=== PATIENT | male | born 1960 | race Caucasian/White ===

== ENCOUNTER 2019-02-11 09:16 | Outpatient (REF) | payer MEDICAID, SELFPAY ==
[2019-02-11 12:51] LABS: Anion Gap 10.8 mmol/L (3-11); BUN 22 mg/dL (7-18); CO2 25.2 mmol/L (21.0-32.0); CREATININE 1.07 mg/dL (0.70-1.30); Calcium 8.7 mg/dL (8.5-10.1); Chloride 107 mmol/L (98-107); Glucose 103 mg/dL (74-106); Potassium 4.1 mmol/L (3.5-5.1); Sodium 143 mmol/L (136-145)
[2019-02-14 11:37] LABS: PSA, Screening 1.3 ng/mL (0.0-3.5)
== END 2019-02-11 09:36 ==
LOC: NCHCN 09:16
PROVIDERS: Visit Provider Family Medicine
DX: R03.0 Elevated blood-pressure reading, without diagnosis of hypertension (principal); Z12.5 Encounter for screening for malignant neoplasm of prostate
CPT/HCPCS: 80048; 84153

== ENCOUNTER 2019-08-04 09:29 | Outpatient (REF) | payer MEDICAID, SELFPAY ==
[2019-08-04 20:32] LABS: Hemoglobin A1C 5.4 % (3.8-5.6)
[2019-08-04 20:40] LABS: ALT 39 U/L (16-63); AST 32 U/L (15-37); Albumin 4.2 g/dL (3.4-5.0); Alkaline Phosphatase 69 U/L (46-116); Anion Gap 10.8 mmol/L (3-11); BUN 19 mg/dL (7-18); Bilirubin, Total 1.1 mg/dL (0.2-1.0); CO2 25.2 mmol/L (21.0-32.0); CREATININE 1.17 mg/dL (0.70-1.30); Calcium 8.6 mg/dL (8.5-10.1); Calculated LDL 94 mg/dL (<100); Chloride 106 mmol/L (98-107); Cholesterol 157 mg/dL (<200); Glucose 98 mg/dL (74-106); HDL Cholesterol 39 mg/dL (40-60); Potassium 3.9 mmol/L (3.5-5.1); Sodium 142 mmol/L (136-145); Total Protein 6.9 g/dL (6.4-8.2); Triglyceride 120 mg/dL (<150)
== END 2019-08-04 09:49 ==
LOC: NCHCN 09:29
PROVIDERS: PCP Family Medicine; Visit Provider Family Medicine
DX: R73.03 Prediabetes (principal); R03.0 Elevated blood-pressure reading, without diagnosis of hypertension
CPT/HCPCS: 80053; 80061; 83036

== ENCOUNTER 2020-04-17 11:34 | Emergency (ER) | payer MEDICAID, SELFPAY ==
[2020-04-17 11:42] VITALS: BP 156/105; PULSE 62; RESP 16; TEMP 36.2; O2SAT 98
--- NOTE | 2020-04-17 11:51 | ED.GENADUL_ITS ---
Discharge Plan Disposition Patient Disposition: HOME Condition: Stable Discharge Details Clinical Impression: Injury of hand, right Primary Care Provider: Luda Elam ED Provider: Saima Peralta Home Meds and New Rx's Prescriptions: No Action No Known Home Meds RF: 0 Discharge Instructions Instructions: Hand Fracture (ED) Additional Instructions: Please follow-up with orthopedics in 1 to 2 weeks or sooner as possible as needed for continued pain swelling. Wear splint for comfort and immobilization. Rest, ice, elevation at the level of your heart while sitting or laying down. Please take Tylenol or Ibuprofen with food every 4-6 hours as needed for pain and swelling. Knee x-rays taken today shows questionable fracture on the third knuckle, but due to the extensive degenerative changes is very hard to see. Referrals: Luda Elam [Primary Care Provider] - Francisco Dotson MD [ [facility] STAFF PHYSICIAN] - Medical Decision Making 59-year-old male presents to the ER with chief complaint of right hand pain since last night, patient states that he slipped last night on the ice, hit his hand on a wall hyperextending his fingers. He does have a previous fracture to that hand on the fourth finger, he has some tenderness to the dorsum of his hand, swelling and contusion noted. He does have some decreased extension. He has full range of motion of his wrist. He has a past medical history of asthma, Parkinson's disease, resting tremor, status post bilateral carpal tunnel release. He took ibuprofen this morning prior to arrival. Patient given ice pack, x-ray right hand ordered. Offered Tylenol or ibuprofen patient declined at this time. He did take Advil prior to arrival this morning. CLINICAL HISTORY: Hand injury, Fall TECHNIQUE: COMPARISON: No exams were available for comparison FINDINGS: Four views were obtained. There are severe degenerative changes of the joints of the hand and wrist. No gross acute fracture identified. Discussed x-ray results with radiologist, there is a lot of old degenerative changes and old injuries. He neither confirm nor deny that there could be a acute fracture on the3rd right metacarpal, more possibly seen on lateral view. Patient placed in a universal wrist splint which she reports makes him feel much better. Will have patient follow-up with orthopedics in 1 to 2 weeks if continued pain and swelling. Discussed x-ray results and home care with patient. He verbalizes understanding. Discussed follow-up with orthopedics. This text was generated using [employer] dictation system, please disregard any oddities of phrase or misspellings. HPI General Mode of arrival: ambulatory . Date/Time Provider Initiated Documentation: 04/17/20 11:42 . Limitations to Documentation: no limitations . Information obtained by: patient . HPI Narrative: 59-year-old male presents to the ER with chief complaint of right hand pain since last night, patient states that he slipped last night on the ice, hit his hand on a wall hyperextending his fingers. He does have a previous fracture to that hand on the fourth finger, he has some tenderness to the dorsum of his hand, swelling and contusion noted. He does have some decreased extension. He has full range of motion of his wrist. He has a past medical history of asthma, Parkinson's disease, resting tremor, status post bilateral carpal tunnel release. He took ibuprofen this morning prior to arrival. Related Data Home Medications Medication Instructions Recorded Confirmed Unknown [No Known Home Meds] 04/17/20 04/17/20 Allergies Allergy/AdvReac Type Severity Reaction Status Date / Time Penicillins Allergy Intermediate Skin Rash Verified 10/25/19 08:23 General Stated Complaint: Orthopedic ANKITA: 4 Review of Systems Narrative: No headache, no neck no back pain. He denies hitting his head or any loss of consciousness. All systems reviewed & are unremarkable except as noted in HPI and below ENT Ears, Nose, Mouth, and Throat: Denies neck pain Musculoskeletal Musculoskeletal: Reports as per HPI, Denies back pain, Reports arthralgias (Right hand), Reports joint swelling, Reports limited range of motion, Denies muscle weakness, Denies neck pain, Denies numbness, Denies radiating pain into limb, Reports stiffness and Denies tingling Neurologic Neurologic: Denies numbness and Denies tingling [facility] Medical History (Updated 04/17/20 @ 13:17 by Saima Peralta) Asthma Parkinsons disease (2016) Primary insomnia (11/01/15) Prosopagnosia Resting tremor (10/01/15) Surgical History Biceps tendon tear S/p bilateral carpal tunnel release Social History Smoking/Tobacco Use Status: Never Smoking risk assessment performed?: Yes Alcohol Intake: never Drug use: Never Substance use type: does not use Household members: family Do you feel safe at home: Yes Do you feel safe in your relationship?: Yes Additional Social history: 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 2 kids. No smoking, ETOH, or illicit drug use. Exam Narrative Exam Narrative: Constitutional: Alert and oriented x3. Appears stated age. Normal body habitus. Head: Normocephalic, no signs of trauma. Eyes: Pupils PERRLA, EOM's intact. Eyelids symmetrical without lesions, discharge, or swelling. Chest: RRR, Normal S1, S2, distal pulses intact. Resp: Lungs clear to auscultation bilaterally, no wheezes, rales, or rhonchi. Musculoskeletal: Normal gait, 5/5 strength to all four extremities. Right hand tenderness, swelling noted to the dorsum of his right hand, contusion noted to the base of his third digit. He does have decreased extension with approximately 75%, increased pain with flexion. Intact radial pulses, cap refill less than 2 seconds distally. Full range of motion of extension and flexion to the wrist. No elbow tenderness to palpation, no obvious deformity to the elbow. Skin: No suspicious rashes or lesions. Capillary refill less than 2 sec. Hematologic/Lymphatic: No ecchymosis, no lymphadenopathy. Course Vital Signs Vital signs: Vital Signs Temperature 36.2 C L 04/17/20 11:42 Pulse 62 04/17/20 11:42 Respiratory Rate 16 04/17/20 11:42 Blood Pressure 156/105 H 04/17/20 11:42 Pulse Oximetry 98 04/17/20 11:42 Temperature 36.2 C L 04/17/20 11:42 Temperature Source Skin 04/17/20 11:42 Pulse 62 04/17/20 11:42 Respiratory Rate 16 04/17/20 11:42 Respiratory Effort 04/17/20 11:46 Blood Pressure 156/105 H 04/17/20 11:42 Blood Pressure Position Sitting 04/17/20 11:42 Pulse Oximetry 98 04/17/20 11:42 Oxygen Delivery Method Room Air 04/17/20 11:42 Oxygen Flow Rate 0 04/17/20 11:42 Pain Level 1 04/17/20 11:46
--- NOTE | 2020-04-17 12:13 | DI.RAD_ITS ---
EXAM: XR HAND RT COMPLETE CLINICAL HISTORY: Hand injury, Fall TECHNIQUE: COMPARISON: No exams were available for comparison FINDINGS: Four views were obtained. There are severe degenerative changes of the joints of the hand and wrist. No gross acute fracture identified. IMPRESSION: RADIATION DOSE DELIVERED: Total DLP
[2020-04-17 13:08] VITALS: BP 158/103; PULSE 78; RESP 18; TEMP 36.5; O2SAT 98
== END 2020-04-17 13:29 | disposition home or self-care (01) ==
PROVIDERS: Emergency Provider Registered Nurse Emergency; PCP Family Medicine
DX: S69.91XA Unspecified injury of right wrist, hand and finger(s), initial encounter (principal); W00.0XXA Fall on same level due to ice and snow, initial encounter; W22.01XA Walked into wall, initial encounter
CPT/HCPCS: 99283; 73130

== ENCOUNTER 2020-09-21 04:42 | Outpatient (CLI) | payer MEDICAID, SELFPAY ==
--- NOTE | 2020-09-21 14:14 | DI.RAD_ITS ---
Exam(s) XR KNEE LT 3V AP,LAT,MONICA EXAM: XR KNEE LT 3V AP,LAT,MONICA CLINICAL HISTORY: LT KNEE PAIN, M25.562 TECHNIQUE: COMPARISON: No exams were available for comparison FINDINGS: Three views were obtained. There is mild narrowing of medial tibiofemoral cartilaginous joint space. Otherwise cartilaginous joint spaces appear fairly well maintained. No gross joint effusion on the lateral view. No bony or soft tissue abnormality seen. IMPRESSION: Mild narrowing of medial tibiofemoral cartilaginous joint space, presumably on a degenerative basis. No other significant findings. RADIATION DOSE DELIVERED: Total DLP
== END 2020-09-21 05:02 ==
PROVIDERS: PCP Family Medicine; Visit Provider Family Medicine
DX: M94.8X6 Other specified disorders of cartilage, lower leg (principal); M25.562 Pain in left knee
CPT/HCPCS: 73562

== ENCOUNTER → 2021-06-17 01:01 | Outpatient (CLI) | payer MEDICAID, SELFPAY ==
--- NOTE | 2021-06-17 08:09 | DI.RAD_ITS ---
Exam(s) XR CHEST 2V PA LATERAL EXAM: XR CHEST 2V PA LATERAL CLINICAL HISTORY: COUGH R05.8 TECHNIQUE: 2D digital imaging was performed. COMPARISON: CR CHEST 2 VIEWS PA,LAT from 06/15/2017 FINDINGS: MEDIASTINUM: Normal. HEART: Normal. PULMONARY VASCULATURE: Normal. LUNGS: Clear. PLEURAL SPACE: No pleural effusion or pneumothorax. BONE:Degenerative changes in the thoracic spine. IMPRESSION: No acute abnormality. DATA REPOSITORY: RADIATION DOSE DELIVERED:
== END ==
PROVIDERS: PCP Family Medicine; Visit Provider Family Medicine
DX: R05.8 Other specified cough (principal)
CPT/HCPCS: 71046

== ENCOUNTER 2022-01-16 07:41 | Day surgery (SDC) | payer MEDICAID, SELFPAY ==
--- NOTE | 2022-01-15 17:27 | W.PM.DSUDISC ---
Date of service: 01/16/22 Time of Service: 09:41 Discharge Plan Disposition Patient Disposition: HOME Condition: Good Discharge Details Attending Provider: Abdullahi Gary Primary Care Provider: Luda Elam Home Meds and New Rx's Prescriptions: Continued albuterol sulfate 90 mcg/actuation HFA aerosol inhaler 2 puff inhalation Q6H PRN fluticasone propionate [Flovent HFA] 220 mcg/actuation HFA aerosol inhaler 2 puff inhalation BID tamsulosin [Flomax] 0.4 mg capsule 0.4 mg PO QHS Discontinued polyethylene glycol 3350 17 gram/dose powder 238 g PO ONCE Qty: 238 0RF Rx Instructions: take per colonoscopy instructions bisacodyl [Dulcolax (bisacodyl)] 5 mg tablet,delayed release (DR/EC) 5 mg PO ONCE Qty: 4 0RF Rx Instructions: take per colonoscopy instructions Discharge Instructions Instructions: Colorectal Polyps (GEN) Additional Instructions: 1. If tolerated, consume a soft, low fiber diet for 1-2 days. 2[address] Do not drive, drink alcohol, operate machinery, make critical decisions, or do activities that require coordination or balance for 24 hours. 3. Because air was put into your colon during the procedure, expelling air from your rectum (passing gas or farting) is normal. 4. You may not have a bowel movement for 1-3 days because of the colonoscopy prep. This is normal. 5. Go directly to the emergency room if you notice any of the following: Develop chills (warm to touch), or if you have a thermometer and your temperature is above 101 Difficulty breathing or difficultly swallowing Persistent vomiting Severe abdominal pain, other than gas cramps Severe chest pain Black, tarry stools Any bleeding ? exceeding one tablespoon 6. Call your physician if the site where your intravenous was started becomes red, swollen, painful, and warm to touch. 7. Your physician has reviewed your pre-procedure medications. Please continue to take those medications as previously ordered. You will be given specific information/education regarding any changes to your medications before leaving. Activity:: Activity as Tolerated Diet:: As Tolerated DS: Diagnosis Discharge Diagnosis (1) Colorectal polyps: Status: Acute Asessment and Plan: I will contact you with the pathology results once the biopsies are completed.
--- NOTE | 2022-01-15 17:28 | W.COLOREPORT ---
Date of service: 01/16/22 Time of Service: 09:43 Colonoscopy Report Date of procedure: 01/16/22 Pre-op diagnosis general: Routine health maintenance screening colonoscopy Post-op diagnosis procedure note: other (Cecal polyps) Procedure: Colonoscopy with polypectomy Surgeon: Abdullahi Gary Anesthesia Type: General:No Airway Estimated blood loss (mL): 10 Pathology: other (Cecal polyps x2) Complications: None Disposition: same day Indications: Sancho is a 61-year-old male following up for his next colonoscopy Prep: Miralax/Dulcolax Procedure Start Time: 09:13 Procedure End Time: 09:32 Retraction Time: 15 Findings: Cecal polyps x2 Procedure Description: After the induction of monitored anesthetic care, and with the patient in left lateral decubitus position, I began by performing an external anorectal exam.? Perineum and skin were normal, as was the anal verge.? There was no evidence of external hemorrhoids.? Next, I performed a digital rectal exam.? I did not appreciate any abnormal findings.? Next, I advanced a colonoscope into the rectal vault.? I performed retroflexion.? This was normal.? Using insufflation, I then advanced the colonoscope beyond the rectal folds and into the sigmoid colon before advancing towards the cecum.? The quality of the prep was excellent.? The scope was noted to be in the cecum by identification of the ileocecal valve and appendiceal orifice.? Within the cecum, there were 2 polyps. The first was 0.5 cm. It was pedunculated. It was removed with snare polypectomy. There was minimal bleeding. The second polyp was 0.25 cm. This was removed with cold forceps. There was minimal bleeding here as well. I then began withdrawing the colonoscope using repeated irrigation as necessary for full evaluation of the colonic mucosa. ?Once the scope was withdrawn to the level of the rectum, great care was taken to examine portions of the rectal folds.? Finally, the scope was withdrawn and the patient was brought to the same-day surgery recovery unit as the anesthetic wore off. ?The findings and instructions were shared with the patient prior to discharge.
[2022-01-16 08:06] VITALS: BP 135/91; PULSE 82; RESP 18; TEMP 36.2; O2SAT 97
[2022-01-16] MEDS: Lactated Ringers 1,000 ML 80 ML IV (08:35)
--- NOTE | 2022-01-16 08:40 | W.ANESPRE ---
General Info Date of Service Date Performed: 01/16/22 Height: 5 ft 9 in Weight: 95.3 kg Body Mass Index (BMI): 31.0 Surgical Procedure: Operation Date: 01/16/22 09:05 Proposed Procedure Side Surgeon robin Gary MD Meds Allergies and Home Medications Allergies Allergy/AdvReac Type Severity Reaction Status Date / Time Penicillins Allergy Intermediate Skin Rash Verified 01/16/22 08:04 Home Medication Medication Instructions Recorded albuterol sulfate 90 mcg/actuation 2 puff inhalation Q6H PRN 08/22/21 aerosol inhaler fluticasone propionate 220 2 puff inhalation BID 09/30/21 mcg/actuation HFA aerosol inhaler (Flovent HFA) tamsulosin 0.4 mg capsule (Flomax) 0.4 mg PO QHS 09/30/21 Current Visit Medications: Current Medications Generic Name Dose Route Start Last Admin Trade Name Freq PRN Reason Stop Dose Admin Hyoscyamine Sulfate 0.125 mg 01/15/22 17:29 Hyoscyamine 0.125 Mg Sl/Oral/Chew SL DIRECTED PRN Ringer's Solution 1,000 mls @ 80 mls/hr 01/16/22 06:00 01/16/22 08:35 IV 02/14/22 23:59 80 mls/hr INFUSION KALYAN Administration IV Miscellaneous Supplies 1 each 01/16/22 06:00 Iv Access IV 02/14/22 23:59 DIRECTED KALYAN Ondansetron HCl 4 mg 01/15/22 17:29 Ondansetron 4 Mg/2 Ml Vial IVP Q4H PRN PRN Nausea / Vomiting Sodium Chloride 0 ml 01/16/22 06:00 Normal Saline Flush 10 Ml Syr IV 02/14/22 23:59 PRN PRN Sodium Chloride 0 ml 01/16/22 06:00 Normal Saline 10 Ml Vial IJ 02/14/22 23:59 DIRECTED PRN Sterile Water 0 ml 01/16/22 06:00 Water,Injection,Sterile 10 Ml Vial IJ 02/14/22 23:59 DIRECTED PRN PFSH Active Problems Active Problems: Problem Status Onset Code BPH (benign prostatic hyperplasia) N40.0 Injury of hand, right S69.91XA Episodes of decreased attentiveness 2017 R68.89 Essential tremor 2018 G25.0 Asthma J45.909 Prosopagnosia R48.3 Resting tremor 10/01/15 R25.9 Primary insomnia 11/01/15 F51.01 Parkinsons disease 2016 G20 Surgical History Surgical History Biceps tendon tear History of colonoscopy (~09/15/11) S/p bilateral carpal tunnel release Tobacco Smoking/Tobacco Use Status: Never Alcohol Alcohol Intake: never Substance Use Substance use: Never Substance use type: does not use Vital Signs and Lab Results Vital Signs Most Recent Vital Signs in EMR: Most Recent Vital Signs Temp Pulse Resp BP Pulse Ox 36.2 C L 82 18 135/91 H 97 01/16/22 08:06 01/16/22 08:06 01/16/22 08:06 01/16/22 08:06 01/16/22 08:06 Lab Results Blood Type / Crossmatch: No Data to Display Complete Blood Count: No Data to Display Complete Metabolic Panel: No Data to Display Liver Function Panel: No Data to Display Coagulation Panel: No Data to Display Cardiac Panel: No Data to Display Arterial Blood Gas: No Data to Display Venous Blood Gas: No Data to Display Pancreas Panel: No Data to Display Thyroid Panel: No Data to Display Infectious Disease: No Data to Display Blood Cultures: No Data to Display Toxicology Panel: No Data to Display Anesthesia Assessment and Plan Anesthesia History Personal History: No History of Anesthesia Complications Family History: No Family History of Anesthesia Complications Exercise Tolerance Exercise Tolerance: Metabolic Equivalents>4 Pertinent Negatives Pertinent Negatives: No Symptoms of GERD, No Major Cardiovascular Symptoms or Complaints, No Major Pulmonary Symptoms or Complaints and No History of CVA/TIA Cardiac & Pulmonary Exam Cardiac Exam: Normal S1/S2 Heart Sounds Pulmonary Exam: Clear Bilateral Breath Sounds Implantable Cardiac Device Does patient have a Pacemaker or an ICD?: No Airway Exam Known Difficult Airway: No Mallampati Class: 2 Mouth Opening: Normal (> 3cm) Thyromental Distance: Greater than 3 cm Neck Range of Motion: Full ROM Neck Circumference: Normal Teeth Condition: Normal Dentition ASA Classification ASA Score: ASA 2 Emergency Case?: No NPO Status NPO Status: NPO Clears >2 hours, Solids >8 hours Anesthesia Plan Resuscitation Status: Full Code Anesthesia Technique: General Anesthesia Airway Planned: Natural Airway Monitors Used: Standard Monitors
--- NOTE | 2022-01-16 09:21 | BOWEL_PTH ---
PATIENT: Chris Mittal LOC: [facility] U#:[id number] AGE/SX: 61/M ROOM: RE01/16/[address]: Abdullahi Gary MD : 1960 BED: DIS: 01/16/2022 SPEC #: [id number] RECD: 01/16/22 13:08 STATUS: NEHAL RE #: [id number] JEREMY: 01/16/22 09:[address]: Abdullahi Gary DEPT: Surgical Specimen RECD BY: Tracy Bhardwaj ENTERED: 01/16/22 13:09 SP TYPE: Bowel OTHR DR: Luda Elam Tissues: 1 - BIOPSY BOWEL 2 - BIOPSY BOWEL Procedures: GROSS AND MICRO LEVEL 4 Comments: [id number]
[2022-01-16 09:29] VITALS: BMI 31.0
[2022-01-16 09:38] VITALS: BP 122/86; PULSE 67; RESP 16; TEMP 36.4; O2SAT 97
--- NOTE | 2022-01-16 09:40 | W.ANESPOSTOP ---
Postoperative Evaluation Date, Time and Location Date Performed: 01/16/22 Time Performed: 09:40 Patient Location: Day Surgery Unit Vital Signs Most Recent Imported Vital Signs: Most Recent Vital Signs Temp Pulse Resp BP Pulse Ox 36.2 C L 82 18 135/91 H 97 01/16/22 08:06 01/16/22 08:06 01/16/22 08:06 01/16/22 08:06 01/16/22 08:06 Most Recent Manually Entered Vital Signs: Adult Blood Pressure: 122/86 Heart Rate: 69 Respirations: 12 Oxygen Saturation (%): 95 Temperature (C): 36.3 C Pain Score (0-10 Scale): 0 Pain Score Most Recent Pain Score: Most Recent Pain Score Pain Level 0 01/16/22 08:06 Assessment Mental Status: Awake (Alert & Oriented to Patient Baseline) Airway and Respiratory Function: Patent airway with normal (patient baseline) respiratory exam Cardiovascular Function: Hemodynamically Stable Hydration Status: Adequately Hydrated Nausea & Vomiting: No Nausea or Vomiting Pain: Pt. Denies Any Pain Peripheral Nerve Block: Patient did not receive a nerve block
[2022-01-16 09:41] VITALS: BP 122/86; PULSE 69; RESP 12; TEMPC 36.3; O2SAT 95
[2022-01-16 10:05] VITALS: BP 135/99; PULSE 68; RESP 18; TEMP 36.6; O2SAT 95
== END 2022-01-16 10:12 | disposition home or self-care (01) ==
PROVIDERS: PCP Family Medicine; Visit Provider Surgery
PROC: 0DJD8ZZ Inspection of Lower Intestinal Tract, Via Natural or Artificial Opening Endoscopic (ICD-10-PCS; CPT 45378; principal; 2022-01-16 09:00)
DX: Z12.11 Encounter for screening for malignant neoplasm of colon (principal); K63.5 Polyp of colon
CPT/HCPCS: 45385; 45380; 88305

== ENCOUNTER 2022-09-22 13:14 | Outpatient (REF) | payer MEDICAID, SELFPAY ==
[2022-09-22 14:47] LABS: HCT 50.7 % (40.0-50.0); HGB 17.6 g/dL (13.5-17.5); MCH 29.7 pg (27.0-33.0); MCHC 34.7 % (32.0-36.0); MCV 86 fL (80-95); MPV 10.5 fL (8.0-11.0); Platelet Count 178 10^3/uL (130-400); RBC 5.93 10^6/uL (4.36-5.78); RDW 11.8 % (11.8-14.1); RDW-SD 36.9 fL; WBC 7.14 10^3/uL (4.4-10.8)
[2022-09-22 15:10] LABS: Anion Gap 9.2 mmol/L (3-11); BUN 20 mg/dL (7-18); CO2 26.8 mmol/L (21.0-32.0); CREATININE 1.1 mg/dL (0.70-1.30); Calcium 8.9 mg/dL (8.5-10.1); Calculated LDL 106 mg/dL (<100); Chloride 106 mmol/L (98-107); Cholesterol 166 mg/dL (<200); Estimated GFR 75.43 (mL/min/1.73m2); Glucose 98 mg/dL (74-106); HDL Cholesterol 49 mg/dL (40-60); Sodium 142 mmol/L (136-145); Triglyceride 56 mg/dL (<150)
== END 2022-09-22 13:15 | disposition home or self-care (01) ==
LOC: NCHCN 13:14
PROVIDERS: PCP Family Medicine; Visit Provider Family Medicine
DX: R03.0 Elevated blood-pressure reading, without diagnosis of hypertension (principal); K21.9 Gastro-esophageal reflux disease without esophagitis; J45.20 Mild intermittent asthma, uncomplicated; Z00.00 Encounter for general adult medical examination without abnormal findings; R79.89 Other specified abnormal findings of blood chemistry
CPT/HCPCS: 80048; 80061; 85027

== ENCOUNTER 2022-10-09 12:13 | Outpatient (REF) | payer MEDICAID, SELFPAY ==
--- NOTE | 2022-10-09 15:40 | SKI_PTH ---
PATIENT: Chris Mittal LOC: [facility]#:[id number] AGE/SX: 62/M ROOM: RE10/09/[address]: Naeem Mike : 1960 BED: DIS: 10/09/2022 SPEC #: [id number] RECD: 10/10/22 12:51 STATUS: NEHAL REQ #: [id number] JEREMY: 10/09/22 15:[address]: Naeem Mike DEPT: Surgical Specimen RECD BY: Tracy Bhardwaj ENTERED: 10/10/22 12:52 SP TYPE: MARY BLAIR DR: Luda Elam Tissues: 1 - SKIN BIOPSY(SHAVE/PUNCH) Procedures: SKIN LEVEL 4 Comments: [id number]
== END 2022-10-09 12:14 | disposition home or self-care (01) ==
LOC: NCHCN 12:13
PROVIDERS: PCP Family Medicine; Visit Provider Family Medicine
DX: D18.01 Hemangioma of skin and subcutaneous tissue; D23.61 Other benign neoplasm of skin of right upper limb, including shoulder
CPT/HCPCS: 88305

== ENCOUNTER 2023-06-22 11:24 | Outpatient (REF) | payer MEDICAID, SELFPAY ==
[2023-06-22 15:06] LABS: Abs Immature Grans 0.03 10^3/uL (0.0-0.06); Absolute Basophil Count 0.05 10^3/uL (0.0-0.2); Absolute Eosinophil Count 0.07 10^3/uL (0.0-0.7); Absolute Lymphocyte Count 1.42 10^3/uL (1.2-3.4); Absolute Neutrophil Count 7.65 10^3/uL (1.2-6.7); Basophils % 0.5 %; Eosinophils % 0.7 %; Immature Grans % 0.3 %; Lymphocytes % 14.2 %; MCH 29.9 pg (27.0-33.0); MCHC 34.7 % (32.0-36.0); MCV 86 fL (80-95); MPV 10.4 fL (8.0-11.0); Neutrophils % 76.3 %; Platelet Count 243 10^3/uL (130-400); RBC 5.69 10^6/uL (4.36-5.78); RDW 11.4 % (11.8-14.1); RDW-SD 35.6 fL; WBC 10.02 10^3/uL (4.4-10.8)
[2023-06-22 15:11] LABS: ESR 21 mm/hr (0-20)
[2023-06-22 15:47] LABS: ALT 23 U/L (16-63); AST 16 U/L (15-37); Albumin 3.9 g/dL (3.4-5.0); Alkaline Phosphatase 75 U/L (46-116); Anion Gap 11.2 mmol/L (3-11); BUN 19 mg/dL (7-18); Bilirubin, Total 0.6 mg/dL (0.2-1.0); C-Reactive Protein 1.84 mg/dL (<or=0.5); CO2 25.8 mmol/L (21.0-32.0); CREATININE 0.9 mg/dL (0.70-1.30); Calcium 8.6 mg/dL (8.5-10.1); Chloride 105 mmol/L (98-107); Estimated GFR 95.37 (mL/min/1.73m2); Glucose 97 mg/dL (74-106); Potassium 4.1 mmol/L (3.5-5.1); Sodium 142 mmol/L (136-145); Total Protein 6.8 g/dL (6.4-8.2)
[2023-06-22 22:45] LABS: Rheumatoid Factor <8.6 IU/mL (<12.0)
[2023-06-23 09:44] LABS: Lyme Ab w Rflx to Lyme Confirm Negative (Negative)
[2023-06-23 14:02] LABS: ANA Interpretation Positive (Negative); ANA Titer Pattern 1:80 Homogeneous
[2023-06-25 08:46] LABS: Anaplasma phagocytophilum Negative (Negative); B. miyamotoi PCR Negative (Negative); Babesia divergens/MO-1 Negative (Negative); Babesia duncani Negative (Negative); Babesia microti Negative (Negative); Ehrlichia chaffeensis Negative (Negative); Ehrlichia ewingii/canis Negative (Negative); Ehrlichia muris eauclairensis Negative (Negative)
== END 2023-06-22 11:25 | disposition home or self-care (01) ==
LOC: NCHCN 11:24
PROVIDERS: PCP Family Medicine; Visit Provider Family Medicine
DX: M79.642 Pain in left hand (principal)
CPT/HCPCS: 80053; 85652; 87798; 85025; 86038; 86140; 86431; 86618

== ENCOUNTER 2024-08-07 07:59 | Emergency (ER) | payer MEDICARE, MEDICAID, SELFPAY ==
[2024-08-07] VITALS (48 sets, daily range): BP systolic 146–199; BP diastolic 93–116; PULSE 54–71; RESP 11–24; TEMP 36.6; O2SAT 95–98
--- NOTE | 2024-08-07 08:00 | RT.EKG_ITS ---
APPROVED REPORT Exam: Resting ECG Reason for Exam: high BP Patient Location: E HR:61 bpm ECG Measurements Heart Rate 61 AXIS NV 158 P 41 QRSd 86 QRS 34 QT 449 T 16 QTc 453 Conclusion Sinus rhythm...normal P axis, V-rate 60- 99 Probable left atrial enlargement...P >50mS, <-0.10mV V1 I have reviewed and interpreted ECG and agree with software generated interpretation.
--- NOTE | 2024-08-07 08:14 | W.ED.GENAD ---
Discharge Plan Disposition Patient Disposition: Home Condition: Stable Discharge Details Clinical Impression: Hypertensive emergency Primary Care Provider: Luda Elam ED Provider: Naif Martínez Home Meds and New Rx's Prescriptions: New amlodipine 2.5 mg tablet 2.5 mg PO DAILY Qty: 30 0RF Continued albuterol sulfate 90 mcg/actuation HFA aerosol inhaler 2 puff inhalation Q6H PRN fluticasone propionate [Flovent HFA] 220 mcg/actuation HFA aerosol inhaler 2 puff inhalation BID Discharge Instructions Instructions: High blood pressure emergencies, Amlodipine, DASH diet Additional Instructions: You were seen in the emergency department for your hypertensive emergency. You did not take any antihypertensive medications, we controlled your blood pressure with 1 dose of a medicine called clonidine today with good effect and improvement of symptoms. I am starting you on a medication called amlodipine, which should help control your blood pressure I started you on the lowest dose if you find that you are still having symptomatic high blood pressure you can always take 2 tablets for 5 mg, there is plenty of room to go up the dose on this medication before you reach the maximum. Follow-up with your primary care provider in a couple weeks in the meantime attempt diet for hypertension, please return immediately to the ER for any severe headaches, visual changes, chest pain, lack of urinary output or any other emergent concerns. Referrals: Luda Elam [Primary Care Provider, Medicine] Discharge Data Discharge Date/Time-TO BE ENTERED AT DEPARTURE: 08/07/24 12:42 HPI General Date/Time Provider Initiated Documentation: 08/07/24 08:14. HPI Narrative: 64 year-old male presents to ED today by POV/ambulating with his with a chief complaint of headache, vision blurry/floaters with onset yesterday- persistent today but not as severe, noted he had high blood pressure with home reading. Quality described as burning sensation in his head, vague blurry vision/floaters, states he gets brief chest pangs of pain but not today, no radiation to nausea/vomiting, cough, shortness of breath, problems urinating, numbness/tingling, slurred speech, endorses mild dizziness. Severity is described as moderate. Palliating factors include nothing specific attempted. Provoking factors include nothing specific. Patient not anticoagulated. Related Data Home Medications ?Medication ?Instructions ?Recorded ?Confirmed albuterol sulfate 90 mcg/actuation 2 puff inhalation Q6H PRN 08/22/21 08/07/24 aerosol inhaler fluticasone propionate 220 2 puff inhalation BID 09/30/21 08/07/24 mcg/actuation HFA aerosol inhaler (Flovent HFA) amlodipine 2.5 mg tablet 2.5 mg PO DAILY #30 tabs 08/07/24 Previous Rx's ?Medication ?Instructions ?Recorded amlodipine 2.5 mg tablet 2.5 mg PO DAILY #30 tabs 08/07/24 Allergies Allergy/AdvReac Type Severity Reaction Status Date / Time Penicillins Allergy Intermediate Skin Rash Verified 08/07/24 08:14 General Stated Complaint: [facility]Medical ANKITA: 3 Review of Systems All systems reviewed & are unremarkable except as noted in HPI and below Exam Narrative Exam Narrative: GENERAL APPEARANCE: Well-nourished, non-toxic, awake and alert, atraumatic, no acute distress. SKIN: Warm, pink, dry, intact, without rashes/lesions/ulcerations. HEAD: Normocephalic, atraumatic, normal hair distribution for gender/age. EYES: Normal conjunctiva, no exudates on lids/lashes, EOMs intact without nystagmus, vision grossly intact, visual marin intact ENT: Nares patent, no circumoral cyanosis, no facial swelling NECK: Supple, trachea midline, painless cervical ROM. LUNGS/CHEST: Lungs CTA bilaterally- no rhonchi/rales/wheezes diffusely, non-labored respirations, normal A/P diameter, symmetrical expansion, no chest wall deformity HEART (CV/PV): Regular rate and rhythm without murmur, no peripheral edema, no JVD. ABDOMEN: Soft, non-distended, no guarding, no tenderness. MSK: Normal ROM, no swelling/deformity to bilateral UEs or LEs, moving all extremities without weakness, no cyanosis, spine midline without tenderness, normal curvature. NEURO: Mental Status AAOx4 - alert to person, place, time, events No facial droop, no forehead involvement. Motor: No focal weakness - strength 5/5 in bilateral UEs and LEs, proximal and distal, symmetric. Sensory: sensation intact to light touch globally. Gait normal: patient ambulated without ataxia into ED room. PSYCH: euthymic, cooperative, pleasant, appropriate speech Course Vital Signs Vital signs: Vital Signs Pulse 65 08/07/24 08:03 Respiratory Rate 18 08/07/24 08:03 Blood Pressure 199/116 H 08/07/24 08:03 Pulse Oximetry 97 08/07/24 08:03 Temperature 36.6 C 08/07/24 08:06 Temperature Source Oral 08/07/24 08:06 Pulse 65 08/07/24 08:06 Respiratory Rate 18 08/07/24 08:12 Respiratory Effort Normal, Non-Labored 08/07/24 08:12 Respiratory Depth Normal 08/07/24 08:12 Respiratory Pattern Normal 08/07/24 08:12 Blood Pressure 199/116 H 08/07/24 08:06 Blood Pressure Position Sitting 08/07/24 08:06 Pulse Oximetry 97 08/07/24 08:06 Oxygen Delivery Method Room Air 08/07/24 08:06 Oxygen Flow Rate 0 08/07/24 08:06 Medical Decision Making This dictation utilizes [id number] dictation software and may contain unedited grammatical errors. 64 year-old male presents to ED today by POV/ambulating with his with a chief complaint of headache, vision blurry/floaters with onset yesterday- persistent today but not as severe, noted he had high blood pressure with home reading. Quality described as burning sensation in his head, vague blurry vision/floaters, states he gets brief chest pangs of pain but not today, no radiation to nausea/vomiting, cough, shortness of breath, problems urinating, numbness/tingling, slurred speech, endorses mild dizziness. Severity is described as moderate. Palliating factors include nothing specific attempted. Provoking factors include nothing specific. Patients' medical history: tremor, BPH, parkinson's disease, insomnia. Family and social history: states he eats fast food every day, and does not drink water often, non-smoker, no excessive ETOH use. Pertinent exam findings / vital signs include vision grossly intact, visual marin intact, benign cardiopulmonary exam, no JVD, benign abdomen, neuro intact. Differential / pathologies of concern include hypertensive urgency, hypertensive emergency, migraine, stroke. Diagnostic studies of: -CBC, CMP, Trop I, UA, BNP, TSH, EKG, CTA Brain & Neck, XR Chest. -laboratory studies completely benign, no acute abnormalities save for mild elev BUN likely mild dehydration -EKG shows no acute ischemic changes, no arrhythmia or heart block -CTA negative -XR Chest clear Interventions of: -1L IVF NS, 0.1mg PO clonidine, 1g PO APAP, 400mg PO ibuprofen. -Full resolution of symptoms, BP now in the 150s / 90, satisfactory resolution ED Course/Assessment/Plan: 64 y/o M presents with headache, visual changes, and uncontrolled BP. Was treated with PO 0.1mg clonidine as his HR was in the 50s. Labs and imaging show no sign of end-organ damage, no sign of stroke. Patient fully improved with one dose oral anti-hypertensive. Was started on 2 weeks of amlodipine after discussion with patient. He will attempt lifestyle changes and can speak with his PCP about possibly discontinuing amlodipine in a few weeks. Strict return criteria for return of severe PINA, chest pain, dysuria, flank pain, poor urine output, vision changes. Findings not consistent with end-organ damage, ACS, CVA, PANTERA. Disposition of Hypertensive Emergency. Patient verbalized understanding of the plan and return to ED criteria and engaged in shared decision making. Medical Records Medical records reviewed: Yes I reviewed the patient's medical records. Imaging Data Radiologic Study: Attestation: I personally reviewed and interpreted this imaging study as follows: Imaging: CT Scan Radiologist's impression: EXAM: CT BRAIN NECK CTA CLINICAL HISTORY: headache onset last night; visual changes; HTN. TECHNIQUE: Imaging Protocol: Axial CT angiography was performed with multi-slice acquisition and multi-planar and/or 3D reconstructions. CONTRAST MATERIAL: Intravenous: Omnipaque 350 contrast volume:70 mL COMPARISON: CT HEAD WITH/WITHOUT CONTRAST from 04/14/2007 FINDINGS: CT Head W/O and W: Ventricles and Extra axial spaces: Normal in size and morphology for the patient's age. Hemorrhage: None. Cerebral parenchyma: There is no evidence of an acute territorial infarct. There is no evidence of an acute mass effect. Midline shift: None. Brainstem/Cerebellum: Normal. Calvarium: Normal. Visualized Paranasal sinuses/Mastoids: Clear. Soft Tissues: Unremarkable. Enhancement: Unremarkable. CTA Neck W: Common Carotid: Right: No dissection, occlusion or significant stenosis. Left: No dissection, occlusion or significant stenosis. External Carotid: Right: No occlusion or significant stenosis. Left: No occlusion or significant stenosis. Internal Carotid: Right: No dissection, occlusion or significant stenosis. Left: No dissection, occlusion or significant stenosis. Vertebral Artery: Right: No dissection, occlusion or significant stenosis. Left: No dissection, occlusion or significant stenosis. Lung Apices: Normal. Bones: Within normal limits for the patient's age. Soft Tissues: Normal. Thyroid gland: Unremarkable. CTA Brain W: Internal Carotid Arteries: There is no evidence of an aneurysm, occlusion or significant stenosis. Anterior Cerebral Arteries: Right: No aneurysm, occlusion or significant stenosis. Left: No aneurysm, occlusion or significant stenosis. Middle Cerebral Arteries: Right: No aneurysm, occlusion or significant stenosis. Left: No aneurysm, occlusion or significant stenosis. Posterior Cerebral Arteries: Right: No aneurysm, occlusion or significant stenosis. Left: No aneurysm, occlusion or significant stenosis. Vertebral Arteries: Right: No aneurysm, occlusion or significant stenosis. Left: No aneurysm, occlusion or significant stenosis. Basilar Artery: No aneurysm, occlusion or significant stenosis. IMPRESSION: 1. No large vessel occlusion or significant stenosis on the CT angiography of the head. 2. No acute intracranial process. 3. No occlusion or significant stenosis on the CT angiography of the neck. Radiologic Study #2: Attestation: I personally reviewed and interpreted this imaging study as follows: Imaging: X-Ray Radiologist's impression: EXAM: XR CHEST 2V PA LATERAL CLINICAL HISTORY: occasional CP TECHNIQUE: 2D digital imaging was performed of the chest. Two images were obtained. PA and lateral views were obtained. COMPARISON: CR XR CHEST 2V PA LATERAL from 06/17/2021 FINDINGS: MEDIASTINUM: Normal. HEART: Normal. PULMONARY VASCULATURE: Normal. LUNGS: Clear. PLEURAL SPACE: No pleural effusion or pneumothorax. BONE:Within normal limits for the patient's age. OTHER FINDINGS:Normal. IMPRESSION: No acute pulmonary findings. Lab Data Lab results reviewed: Yes I reviewed the patient's lab results. Labs: Laboratory Tests Range/Units 08/07/24 08/07/24 08/07/24 08:37 08:37 08:47 WBC (4.4-10.8) 10^3/uL 9.74 RBC (4.36-5.78) 10^6/uL 5.97 H Hgb (13.5-17.5) g/dL 17.8 H Hct (40.0-50.0) % 50.8 H MCV (80-95) fL 85 MCH (27.0-33.0) pg 29.8 MCHC (32.0-36.0) % 35.0 RDW (11.8-14.1) % 11.9 Plt Count (130-400) 10^3/uL 146 MPV (8.0-11.0) fL 9.8 Immature Gran % % 1.2 Neutrophils % % 62.2 Lymphocytes % % 23.1 Monocytes % % 10.3 Eosinophils % % 2.5 Basophils % % 0.7 Nucleated RBC % (0.0-0.3) % 0.0 Absolute Neutrophils (1.2-6.7) 10^3/uL 6.06 Absolute Lymphocytes (1.2-3.4) 10^3/uL 2.25 Absolute Monocytes (0.1-0.8) 10^3/uL 1.00 H Absolute Eosinophils (0.0-0.7) 10^3/uL 0.24 Absolute Basophils (0.0-0.2) 10^3/uL 0.07 Sodium (136-145) mmol/L 141 Potassium (3.5-5.1) mmol/L 3.7 Chloride (98-107) mmol/L 104 Carbon Dioxide (21.0-32.0) mmol/L 28.7 Anion Gap (3-11) mmol/L 8.3 BUN (7-18) mg/dL 19 H Creatinine (0.70-1.30) mg/dL 1.0 Est GFR (CKD-EPI 2020) (mL/min/1.73m2) 83.52 Glucose (74-106) mg/dL 102 Calcium (8.5-10.1) mg/dL 8.7 Total Bilirubin (0.2-1.0) mg/dL 0.8 AST (15-37) U/L 16 ALT (16-63) U/L 33 Alkaline Phosphatase (46-116) U/L 73 Troponin I (<or=76) ng/L 12 NT-Pro-B Natriuret Pep (<300) pg/mL 58 Cancelled Total Protein (6.4-8.2) g/dL 6.7 Albumin (3.4-5.0) g/dL 3.9 TSH (0.36-3.74) uIU/mL 0.91 Urine Color (Yellow) Yellow Urine Clarity (Clear) Clear Urine pH (5-8) 6.5 Ur Specific [place] (1.005-1.025) 1.020 Urine Protein (Neg-Trace) mg/dL Negative Urine Ketones (Negative) mg/dL Negative Urine Blood (Negative) Negative Urine Nitrite (Negative) Negative Urine Bilirubin (Negative) Negative Urine Urobilinogen (Up to 0.2) mg/dL 0.2 Ur Leukocyte Esterase (Negative) Negative Urine Glucose (Negative) mg/dL Negative PFSH All Active Problems (Updated 08/07/24 @ 12:23 by SAGRARIO Terrell) Hypertensive emergency (Acute) Colorectal polyps (Acute) BPH (benign prostatic hyperplasia) (Chronic) Injury of hand, right (Acute) Episodes of decreased attentiveness (Acute 2018) ?Underlying KAJAL? Essential tremor (Chronic 2017) Asthma (Chronic) Prosopagnosia (Chronic) Resting tremor (Chronic 10/01/15) Primary insomnia (Chronic 11/01/15) Parkinsons disease (Chronic 2015) Surgical History History of colonoscopy (~09/15/11) Biceps tendon tear S/p bilateral carpal tunnel release Social History Smoking/Tobacco Use Status: Never Smoking risk assessment performed?: Yes Alcohol Intake: never Drug use: Never Substance use type: does not use Household members: family Current gender identity: male Do you feel safe at home: Yes Do you feel safe in your relationship?: Yes Additional Social history: 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 2 kids. No smoking, ETOH, or illicit drug use.
--- NOTE | 2024-08-07 08:30 | DI.CT_ITS ---
Exam(s) CT BRAIN NECK CTA EXAM: CT BRAIN NECK CTA CLINICAL HISTORY: headache onset last night; visual changes; HTN. TECHNIQUE: Imaging Protocol: Axial CT angiography was performed with multi- slice acquisition and multi-planar and/or 3D reconstructions. CONTRAST MATERIAL: Intravenous: Omnipaque 350 contrast volume:70 mL COMPARISON: CT HEAD WITH/WITHOUT CONTRAST from 04/14/2007 FINDINGS: CT Head W/O and W: Ventricles and Extra axial spaces: Normal in size and morphology for the patient's age. Hemorrhage: None. Cerebral parenchyma: There is no evidence of an acute territorial infarct. There is no evidence of an acute mass effect. Midline shift: None. Brainstem/Cerebellum: Normal. Calvarium: Normal. Visualized Paranasal sinuses/Mastoids: Clear. Soft Tissues: Unremarkable. Enhancement: Unremarkable. CTA Neck W: Common Carotid: Right: No dissection, occlusion or significant stenosis. Left: No dissection, occlusion or significant stenosis. External Carotid: Right: No occlusion or significant stenosis. Left: No occlusion or significant stenosis. Internal Carotid: Right: No dissection, occlusion or significant stenosis. Left: No dissection, occlusion or significant stenosis. Vertebral Artery: Right: No dissection, occlusion or significant stenosis. Left: No dissection, occlusion or significant stenosis. Lung Apices: Normal. Bones: Within normal limits for the patient's age. Soft Tissues: Normal. Thyroid gland: Unremarkable. CTA Brain W: Internal Carotid Arteries: There is no evidence of an aneurysm, occlusion or significant stenosis. Anterior Cerebral Arteries: Right: No aneurysm, occlusion or significant stenosis. Left: No aneurysm, occlusion or significant stenosis. Middle Cerebral Arteries: Right: No aneurysm, occlusion or significant stenosis. Left: No aneurysm, occlusion or significant stenosis. Posterior Cerebral Arteries: Right: No aneurysm, occlusion or significant stenosis. Left: No aneurysm, occlusion or significant stenosis. Vertebral Arteries: Right: No aneurysm, occlusion or significant stenosis. Left: No aneurysm, occlusion or significant stenosis. Basilar Artery: No aneurysm, occlusion or significant stenosis. IMPRESSION: 1. No large vessel occlusion or significant stenosis on the CT angiography of the head. 2. No acute intracranial process. 3. No occlusion or significant stenosis on the CT angiography of the neck. RADIATION DOSE DELIVERED: 2,748.04mGy.cm Total DLP DATA REPOSITORY: All CT scans at this facility are submitted to the National Radiology Data Registry (NRDR) Dose Index Registry (DIR) with the [employer] ([employer]). RADIATION OPTIMIZATION: All CT scans at this facility use at least one of these dose optimization techniques: automated exposure control; mA and/or kV adjustment per patient size (includes targeted exams where dose is matched to clinical indication); or iterative reconstruction.
--- NOTE | 2024-08-07 08:30 | DI.RAD_ITS ---
Exam(s) XR CHEST 2V PA LATERAL EXAM: XR CHEST 2V PA LATERAL CLINICAL HISTORY: occasional CP TECHNIQUE: 2D digital imaging was performed of the chest. Two images were obtained. PA and lateral views were obtained. COMPARISON: CR XR CHEST 2V PA LATERAL from 06/17/2021 FINDINGS: MEDIASTINUM: Normal. HEART: Normal. PULMONARY VASCULATURE: Normal. LUNGS: Clear. PLEURAL SPACE: No pleural effusion or pneumothorax. BONE:Within normal limits for the patient's age. OTHER FINDINGS:Normal. IMPRESSION: No acute pulmonary findings. DATA REPOSITORY: RADIATION DOSE DELIVERED:
[2024-08-07 08:51] LABS: Abs Immature Grans 0.12 10^3/uL (0.0-0.06); Absolute Basophil Count 0.07 10^3/uL (0.0-0.2); Absolute Eosinophil Count 0.24 10^3/uL (0.0-0.7); Absolute Lymphocyte Count 2.25 10^3/uL (1.2-3.4); Absolute Neutrophil Count 6.06 10^3/uL (1.2-6.7); Basophils % 0.7 %; Eosinophils % 2.5 %; HCT 50.8 % (40.0-50.0); HGB 17.8 g/dL (13.5-17.5); Immature Grans % 1.2 %; Lymphocytes % 23.1 %; MCH 29.8 pg (27.0-33.0); MCV 85 fL (80-95); MPV 9.8 fL (8.0-11.0); Monocytes % 10.3 %; Neutrophils % 62.2 %; Platelet Count 146 10^3/uL (130-400); RBC 5.97 10^6/uL (4.36-5.78); RDW 11.9 % (11.8-14.1); RDW-SD 36.6 fL; WBC 9.74 10^3/uL (4.4-10.8)
[2024-08-07 08:55] LABS: Bilirubin Negative (Negative); Blood Negative (Negative); Clarity Clear (Clear); Glucose Negative (Negative); Ketones Negative (Negative); Leukocyte Esterase Negative (Negative); Nitrite Negative (Negative); Urobilinogen 0.2 mg/dL (Up to 0.2); pH 6.5 (5-8)
[2024-08-07 09:12] LABS: ALT 33 U/L (16-63); AST 16 U/L (15-37); Albumin 3.9 g/dL (3.4-5.0); Alkaline Phosphatase 73 U/L (46-116); Anion Gap 8.3 mmol/L (3-11); BUN 19 mg/dL (7-18); Bilirubin, Total 0.8 mg/dL (0.2-1.0); CO2 28.7 mmol/L (21.0-32.0); Calcium 8.7 mg/dL (8.5-10.1); Chloride 104 mmol/L (98-107); Estimated GFR 83.52 (mL/min/1.73m2); Glucose 102 mg/dL (74-106); NT-proBNP 58 pg/mL (<300); Potassium 3.7 mmol/L (3.5-5.1); Sodium 141 mmol/L (136-145); TSH (W/Ref FT4) 0.91 uIU/mL (0.36-3.74); Total Protein 6.7 g/dL (6.4-8.2); Troponin I 12 ng/L (<or=76)
[2024-08-07] MEDS: Normal Saline - Diluent 50 ML VIAL IJ (09:13)
[2024-08-07] MEDS: Omnipaque 350 MG/ML 100 ML BTL 70 ML IJ (09:14)
[2024-08-07] MEDS: Normal Saline 1,000 ML 1000 ML IV (09:31)
[2024-08-07] MEDS: cloNIDine 0.1 MG TAB PO (10:19)
[2024-08-07] MEDS: Ibuprofen 400 MG TAB PO (11:11)
[2024-08-07] MEDS: Acetaminophen 500 MG TAB 1000 MG PO (11:11)
== END 2024-08-07 12:42 | disposition home or self-care (01) ==
PROVIDERS: Emergency Provider Physician Assistant; PCP Family Medicine
DX: I16.0 Hypertensive urgency (principal); I10 Essential (primary) hypertension
CPT/HCPCS: 36415; 70496; 70498; 80053; 93005; 96360; 99285; 71046; 81003; 83880; 84443; 84484; 85025; 93010; J3490

== ENCOUNTER → 2024-09-19 08:05 | Outpatient (BNVA) | payer MEDICARE, MEDICAID, SELFPAY | PROVIDERS: PCP Family Medicine; Visit Provider Psychiatry & Neurology Neurology | DX: G25.0 Essential tremor (principal); G20.C Parkinsonism, unspecified; J45.909 Unspecified asthma, uncomplicated; I10 Essential (primary) hypertension | CPT/HCPCS: 99214 ==